=== PATIENT | female | born 1945 | race Caucasian/White ===

== ENCOUNTER 2019-09-06 07:38 | Day surgery (SDC) | payer MEDICARE ==
[2019-09-06] VITALS (9 sets, daily range): BP systolic 138–177; BP diastolic 58–159
[~2019-09-06] VITALS: Ht 154.9 cm; Wt 61.6 kg
[2019-09-06] MEDS ORDERED: diphenhydrAMINE 25mg capsule PO PRN (08:05)
[2019-09-06] MEDS ORDERED: normal saline 1,000 ML IV SCH (08:05)
[2019-09-06] MEDS ORDERED: ESTR1.25 PO (08:16)
[2019-09-06] MEDS ORDERED: ASPI-611 PO (08:16)
[2019-09-06] MEDS ORDERED: MEDR5TAB PO (08:16)
[2019-09-06] MEDS ORDERED: fentaNYL/PF 50MCG/1 ML 2ML syringe ONE ×3 (08:46→11:37)
[2019-09-06] MEDS ORDERED: midazolam 2 mg/2 ml injection ONE ×3 (08:47→11:37)
[2019-09-06] MEDS ORDERED: heparin 1,000unit/ml 10ml vial 10 ML ONE (08:47)
[2019-09-06] MEDS ORDERED: iohexol 350 MG/1 ML 200ml bottle ONE (08:47)
[2019-09-06] MEDS ORDERED: LIDOcaine 1% (10mg/ml)w/preservative injection 20ml MDV ONE (08:47)
[2019-09-06] MEDS ORDERED: iohexol 350 MG/ML 50ML vial IV ONE (08:47)
[2019-09-06 09:25] LABS: BASOPHILS # (AUTO) 0.1 X10'3 (0-0.2); BASOPHILS % (AUTO) 0.7 % (0-1); EOSINOPHILS # (AUTO) 0.2 X10'3 (0-0.9); HEMOGLOBIN 13.5 g/dl (12.0-16.0); LYMPHOCYTES # (AUTO) 2.2 X10'3 (1.1-4.8); LYMPHOCYTES % (AUTO) 27.6 % (21-51); MEAN CORPUSCULAR HEMOGLOBIN 30.8 PG (27.0-31.0); MEAN CORPUSCULAR HGB CONC 33.9 g/dL (33.0-36.5); MEAN CORPUSCULAR VOLUME 91.1 FL (78-98); MEAN PLATELET VOLUME 8.4 FL (7.4-10.4); MONOCYTES # (AUTO) 0.5 X10'3 (0-0.9); MONOCYTES % (AUTO) 5.9 % (2-12); NEUTROPHILS % (AUTO) 63.8 % (42-75); PLATELET COUNT 332 X10'3 (140-440); RED BLOOD COUNT 4.39 X10'6 (4.20-5.60); RED CELL DISTRIBUTION WIDTH 13.6 % (11.5-14.5); WHITE BLOOD COUNT 7.8 X10'3 (4.5-11.0)
[2019-09-06] MEDS ORDERED: diphenhydrAMINE 50 mg/ml inj ONE (09:37)
[2019-09-06] MEDS ORDERED: nitroGLYCERIN-Tridil 50MG/D5W 250 ML IV ONE (09:45)
[2019-09-06] MEDS ORDERED: verapamil 2.5 mg/ml inj IV ONE (09:46)
[2019-09-06] MEDS ORDERED: proCHLORperazine 10 MG/2 ml inj ONE (09:46)
[2019-09-06 09:47] LABS: ALBUMIN 4.1 G/DL (3.4-5.0); ANION GAP 12 (8-16); BLOOD UREA NITROGEN 20 MG/DL (7-18); BUN/CREATININE RATIO 17.4 (6.6-38.0); CALCIUM 9.3 MG/DL (8.5-10.1); CHLORIDE 108 MMOL/L (99-107); CREATININE 1.15 MG/DL (0.40-0.90); GLUCOSE 93 MG/DL (70-104); MAGNESIUM 2.1 MG/DL (1.5-2.4); POTASSIUM 4.2 MMOL/L (3.5-5.1); SODIUM 145 MMOL/L (135-145); TOTAL CARBON DIOXIDE 25.5 MMOL/L (24-32); eGFR 47 ML/MIN
[2019-09-06] MEDS ORDERED: clopidogrel 300mg tablet ONE (12:17)
[2019-09-06] MEDS ORDERED: ondansetron/PF 4mg/2ml inj ONE (12:36)
[2019-09-06] MEDS ORDERED: HYDROcodone/acetaminophen 10/325mg tab PO PRN (12:50)
[2019-09-06] MEDS ORDERED: HYDROcodone/acetaminophen 5mg/325mg tablet PO PRN (12:50)
[2019-09-06] MEDS ORDERED: ondansetron/PF 4mg/2ml inj IV PRN (12:50)
[2019-09-06] MEDS ORDERED: normal saline 1000ml 1,000 ML IV SCH (12:50)
[2019-09-06] MEDS ORDERED: proCHLORperazine 10 MG/2 ml inj IV PRN (12:50)
== END 2019-09-06 16:05 | disposition home or self-care (01) ==
LOC: SSTAY O 07:38
PROVIDERS: ATTEND Internal Medicine Cardiovascular Disease
DX: I70.298 Other atherosclerosis of native arteries of extremities, other extremity (principal); M79.602 Pain in left arm; M62.81 Muscle weakness (generalized); Z86.73 Personal history of transient ischemic attack (TIA), and cerebral infarction without residual deficits; Z72.0 Tobacco use
CPT/HCPCS: 36415; 37236; 80048; 83735; 85025; 85610; 93005; C1725; C1769; C1876; C1894; J0780; J1200; J1644; J2001; J2250; J2405; J3010; Q9967; 36225; 76937; A4620; A5120; C1760; J3490

== ENCOUNTER 2019-10-03 18:59 | Emergency (ER) | payer MEDICARE ==
[~2019-10-03] VITALS: Ht 154.9 cm; Wt 59.1 kg
[~2019-10-03 18:59] MED LIST: ASPI-611 PO; ESTR1.25 PO; MEDR5TAB PO
[2019-10-03] MEDS ORDERED: dexamethasone sod phosphate 10mg/ml inj PO STA (20:46)
[2019-10-03] MEDS ORDERED: PRED20TA PO (20:55)
[2019-10-03] MEDS ORDERED: diphenhydrAMINE 50 mg/ml inj IM ONE (20:55)
[2019-10-03 21:21] LABS: BASOPHILS % (AUTO) 0.7 % (0-1); EOSINOPHILS # (AUTO) 0.4 X10'3 (0-0.9); EOSINOPHILS % (AUTO) 6.2 % (0-6); HEMATOCRIT 38.2 % (35.0-45.0); HEMOGLOBIN 12.9 g/dl (12.0-16.0); LYMPHOCYTES # (AUTO) 1.6 X10'3 (1.1-4.8); LYMPHOCYTES % (AUTO) 28.1 % (21-51); MEAN CORPUSCULAR HEMOGLOBIN 30.9 PG (27.0-31.0); MEAN CORPUSCULAR HGB CONC 33.8 g/dL (33.0-36.5); MEAN CORPUSCULAR VOLUME 91.4 FL (78-98); MEAN PLATELET VOLUME 8.5 FL (7.4-10.4); MONOCYTES # (AUTO) 0.5 X10'3 (0-0.9); MONOCYTES % (AUTO) 8.8 % (2-12); NEUTROPHILS # (AUTO) 3.3 X10'3 (1.8-7.7); NEUTROPHILS % (AUTO) 56.2 % (42-75); PLATELET COUNT 335 X10'3 (140-440); RED BLOOD COUNT 4.18 X10'6 (4.20-5.60); WHITE BLOOD COUNT 5.9 X10'3 (4.5-11.0)
[2019-10-03 21:36] LABS: ALANINE AMINOTRANSFERASE 46 U/L (12-78); ALBUMIN 3.9 G/DL (3.4-5.0); ALKALINE PHOSPHATASE 93 IU/L (46-116); ANION GAP 8 (8-16); ASPARTATE AMINO TRANSFERASE 32 U/L (10-37); BILIRUBIN,TOTAL 0.4 MG/DL (0.1-1.0); BLOOD UREA NITROGEN 17 MG/DL (7-18); BUN/CREATININE RATIO 15.9 (6.6-38.0); CALCIUM 9.2 MG/DL (8.5-10.1); CHLORIDE 107 MMOL/L (99-107); CREATININE 1.07 MG/DL (0.40-0.90); GLUCOSE 111 MG/DL (70-104); POTASSIUM 3.9 MMOL/L (3.5-5.1); SODIUM 142 MMOL/L (135-145); TOTAL CARBON DIOXIDE 26.6 MMOL/L (24-32); TOTAL PROTEIN 7.7 G/DL (6.4-8.2); eGFR 51 ML/MIN
[2019-10-03 21:44] VITALS: BP 158/81
== END 2019-10-03 21:47 | disposition home or self-care (01) ==
LOC: ER 19:00
DX: I77.6 Arteritis, unspecified (principal); Z95.1 Presence of aortocoronary bypass graft; Z88.0 Allergy status to penicillin; Z88.5 Allergy status to narcotic agent; Z79.82 Long term (current) use of aspirin; Z79.899 Other long term (current) drug therapy
CPT/HCPCS: 36415; 80053; 85025; 96372; 99283; J1100; J1200